=== PATIENT | male | born 1965 | race African-American/Black ===

== ENCOUNTER 2016-11-01 21:30 | Emergency (ER) | payer MEDICAID ==
[2016-11-01] MEDS ORDERED: Ibuprofen 800 MG TAB ONE (22:32)
[2016-11-01] MEDS ORDERED: traMADol HCl 50 MG TAB ONE (22:32)
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
== END 2016-11-01 22:40 | disposition home or self-care (01) ==
LOC: NAV ERS 21:30
DX: S22.41XA Multiple fractures of ribs, right side, initial encounter for closed fracture (principal); F17.210 Nicotine dependence, cigarettes, uncomplicated; W20.8XXA Other cause of strike by thrown, projected or falling object, initial encounter
CPT/HCPCS: 94799

== ENCOUNTER 2016-12-12 22:54 | Emergency (ER) | payer MEDICAID ==
[2016-12-12] MEDS ORDERED: traMADol HCl 50 MG TAB ONE (23:15)
[2016-12-12] MEDS ORDERED: Ketorolac Tromethamine 60 MG/2 ML VIAL ONE (23:15)
== END 2016-12-12 23:38 | disposition home or self-care (01) ==
LOC: NAV ERS 22:54
DX: K03.81 Cracked tooth (principal); K02.9 Dental caries, unspecified; F17.210 Nicotine dependence, cigarettes, uncomplicated
CPT/HCPCS: 96372; J1885

== ENCOUNTER 2018-03-09 15:58 | Outpatient (CLI) | payer MEDICAID ==
--- NOTE | 2018-03-09 16:54 | RAD ---
LEFT ELBOW FOUR VIEWS: 03/09/18 HISTORY: Left elbow pain. FINDINGS: Radiocapitellar alignment is maintained. Bulky osteophytosis about the joint. Minimal fluid distentio n raises the posterior distal humeral fat pad. There is a triceps enthesophyte at the posterior aspec t of the ulna. Prominent ring osteophyte of the radial neck. IMPRESSION: Prominent degenerative changes of the left elbow with a small joint effusion. POS: [facility]
--- NOTE | 2018-03-09 17:05 | RAD ---
RADIOGRAPH RIGHT SHOULDER 3 VIEWS: 03/09/18 HISTORY: 53-year-old male with persistent posttraumatic right shoulder pain after a fall eight months ago. FINDINGS: No fracture or dislocation. Moderate bony hypertrophy of the distal acromion, and mild to moderate DJ D at AC joint. Mild to moderate degenerative changes isolated to the inferior aspect of the glenohume ral joint. No subluxation. IMPRESSION: 1. No fracture. 2. 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 POS: [facility]
== END 2018-03-09 15:59 | disposition home or self-care (01) ==
LOC: NAV RAD 15:58
PROVIDERS: ATTEND Nurse Practitioner Family
DX: M25.522 Pain in left elbow (principal); M25.511 Pain in right shoulder; M19.011 Primary osteoarthritis, right shoulder; M19.022 Primary osteoarthritis, left elbow; M25.422 Effusion, left elbow

== ENCOUNTER 2018-04-01 14:12 | Emergency (ER) | payer MEDICAID ==
[2018-04-01 15:17] LABS: #Monocytes 0.5 thou/uL (0.11-0.59); #Neutrophils 7.2 thou/uL (1.40-6.50); %Basophils 0.5 % (0.0-1.0); %Eosinophils 0.5 % (0.0-10.0); %Lymphocytes 11.5 % (21.0-51.0); %Neutrophils 81.6 % (42.0-75.0); Hemoglobin 15.7 g/dL (14.0-18.0); Mean Corpuscular HGB CONC 31.9 g/dL (32.0-36.0); Mean Corpuscular Hemoglobin 29.9 pg (27.0-31.0); Mean Corpuscular Volume 93.6 fL (78.0-98.0); Mean Platelet Volume 6.9 fL (7.4-10.4); Platelet Count 298 thou/uL (130-400); RBC Distribution Width 12.6 % (11.5-14.5); Red Blood Cell (RBC) Count 5.26 mill/uL (4.70-6.10); White Blood Cell (WBC) Count 8.9 thou/uL (4.8-10.8)
[2018-04-01 15:27] LABS: ALT (SGPT) 16 U/L (8-55); AST (SGOT) 23 U/L (5-34); Albumin 4.5 g/dL (3.5-5.0); Alkaline Phosphatase 87 U/L (40-150); Anion Gap 12 mmol/L (10-20); BUN (Urea Nitrogen) 9 mg/dL (8.4-25.7); Bilirubin, Total 0.5 mg/dL (0.2-1.2); Calc. Creatinine Clearance 0 mL/min (70-130); Carbon Dioxide 27 mmol/L (22-29); Chloride 101 mmol/L (98-107); Estimated GFR-MDRD 82; Globulin 3.3 g/dL (2.4-3.5); Glucose 79 mg/dL (70-105); Potassium 4.2 mmol/L (3.5-5.1); Protein, Total 7.8 g/dL (6.0-8.3); Sodium 136 mmol/L (136-145)
--- NOTE | 2018-04-01 15:40 | RAD ---
CHEST ONE VIEW: History: Syncope. Comparison: 11-01-16 FINDINGS: Normal cardiac silhouette. The pulmonary vessels and hilum are normal. No mass. No consolidation. No pneumothorax. Probable atelectasis in the left lower lobe. Overall, the lung volumes are diminished d ue to poor inspiratory effort. IMPRESSION: No acute cardiopulmonary process. POS: [facility]
[2018-04-01] MEDS ORDERED: Sodium Chloride 0.9% 1,000 ML ONE (15:45)
--- NOTE | 2018-04-01 15:50 | CT ---
CT OF HEAD NONCONTRAST: Indication: Syncope. FINDINGS: There is no evidence of acute intracranial hemorrhage, mass effect, midline shift or ventriculomegaly . There is opacification of each maxillary sinus with fluid levels demonstrated. IMPRESSION: 1. No acute intracranial abnormalities. 2. Bilateral fluid levels of maxillary sinuses. Correlate for evidence of acute sinusitis. POS: [facility]
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
[2018-04-01] MEDS ORDERED: Lidocaine 1% (PF) 30 ML VIAL ONE (16:33)
[2018-04-01] MEDS ORDERED: Acetaminophen 500 MG TAB ONE (17:06)
[2018-04-01] MEDS ORDERED: Bacitracin Zinc 1 Packet ONE (17:19)
== END 2018-04-01 17:20 | disposition home or self-care (01) ==
LOC: NAV ERS 14:12
DX: S01.511A Laceration without foreign body of lip, initial encounter (principal); S01.21XA Laceration without foreign body of nose, initial encounter; R55 Syncope and collapse; F17.210 Nicotine dependence, cigarettes, uncomplicated; W19.XXXA Unspecified fall, initial encounter; Y92.481 Parking lot as the place of occurrence of the external cause
CPT/HCPCS: 12013; 36415; 36416; 70450; 70486; 71045; 72125; 80053; 84484; 85025; 93005; 96360; J2001; J7050

== ENCOUNTER 2018-04-08 16:56 | Emergency (ER) | payer MEDICAID | END 2018-04-08 17:22 | disposition home or self-care (01) | LOC: NAV ERS 16:56 | DX: S01.81XD Laceration without foreign body of other part of head, subsequent encounter (principal); F17.210 Nicotine dependence, cigarettes, uncomplicated ==